=== PATIENT | female | born 1980 | race Caucasian/White ===

== ENCOUNTER → 2017-03-01 | Outpatient (CLI) | payer BC ==
[2015-06-05 02:35] VITALS: BP 135/75
[~2017-03-01] MED LIST: TRAM-48 PO
--- NOTE | 2017-03-01 14:19 | KCIC ---
Examination: CT maxillofacial bones HISTORY: History of chronic sinusitis, pain behind the right eye, drainage continues COMPARISON: None TECHNIQUE: Axial CT images of the maxillofacial bones were performed without contrast. Coronal and sagittal reformats were performed Exposure: One or more of the following individualized dose reduction techniques were utilized for this examination: 1. Automated exposure control 2. Adjustment of the mA and/or kV according to patient size 3. Use of iterative reconstruction technique FINDINGS: The bilateral orbital globes appear intact. Fat is maintained The visualized ethmoid sinuses, sphenoid sinuses, maxillary sinuses demonstrate no evidence of fluid level. The mastoid air cells are clear. The bilateral pterygoid plates appear intact. The bilateral temporomandibular joints grossly appears unremarkable. IMPRESSION: 1. No evidence of sinus disease. Electronically signed by: Bj Conner MD (03/01/2017 2:16 PM)
== END | disposition home or self-care (01) ==
LOC: KCIC CT 12:49
PROVIDERS: ATTEND Otolaryngology
DX: J32.9 Chronic sinusitis, unspecified (principal)
CPT/HCPCS: 70486

== ENCOUNTER 2019-12-03 23:09 | Emergency (ER) | payer BC ==
[~2019-12-03] VITALS: Ht 167.6 cm; Wt 160.0 kg
--- NOTE | 2019-12-03 23:40 | PHYS DOC ---
Past Medical History Past Medical History: Asthma, Hypertension, Other Additional Past Medical Histor: ENDOMETRIOSIS Past Surgical History: Other Additional Past Surgical Histo: LAP BAND, ENDOMETRIOSIS SX. Smoking Status: Current Every Day Smoker Alcohol Use: Occasionally Drug Use: None Adult General Chief Complaint Chief Complaint: NAUSEA/VOMITING/DIARRHA HPI HPI 39-year-old female with history of asthma and hypertension presents to the emergency department with complaints of elevated blood pressure, diarrhea, dizziness, nausea, abdominal pain. She denies any fever cough. The symptoms been ongoing x2 days. Patient states her blood pressure was in the 170s over 100s at home. She does take 3 blood pressure medications including losartan, hydrochlorothiazide, amlodipine. Nothing makes her symptoms worse, nothing makes her symptoms better. Her abdominal pain is primarily generalized and achy. Review of Systems Review of Systems Constitutional: Denies fever or chills [] HENT: Denies nasal congestion or sore throat [] Respiratory: Denies cough or shortness of breath [] Cardiovascular: No additional information not addressed in HPI [] GI: + abdominal pain, nausea, vomiting, diarrhea [] : Denies dysuria or hematuria [] Musculoskeletal: Denies back pain or joint pain [] Neurologic: Denies headache, focal weakness or sensory changes [] All other systems were reviewed and found to be within normal limits, except as documented in this note. Current Medications Current Medications Current Medications Medications (Trade) Dose Ordered Sig/Tiffany Start Time Stop Time Status Last Admin Dose Admin Dicyclomine HCl (Bentyl) 20 mg 1X ONCE 12/04/19 01:00 12/04/19 01:01 Iohexol (Omnipaque 300 Mg/ml) 75 ml 1X ONCE 12/04/19 00:30 12/04/19 00:31 DC 12/04/19 00:24 75 ML Ondansetron HCl (Zofran) 4 mg 1X ONCE 12/04/19 00:00 12/04/19 00:01 DC 12/04/19 00:05 4 MG Sodium Chloride 1,000 ml @ 1,000 mls/hr Q1H 12/04/19 00:00 12/04/19 00:59 12/04/19 00:04 1,000 MLS/HR Allergies Allergies Allergies Coded Allergies Type Severity Reaction Last Updated Verified No Known Drug Allergies 06/05/15 No Physical Exam Physical Exam Constitutional: Well developed, well nourished, no acute distress, non-toxic appearance. [] HENT: Normocephalic, atraumatic, bilateral external ears normal, oropharynx moist, no oral exudates, nose normal. [] Eyes: PERRLA, EOMI, conjunctiva normal, no discharge. [] Cardiovascular:Heart rate regular rhythm, no murmur [] Lungs & Thorax: Bilateral breath sounds clear to auscultation [] Abdomen: Bowel sounds normal, soft, generalized TTP, no masses, no pulsatile masses. [] Skin: Warm, dry, no erythema, no rash. [] Back: No tenderness, no CVA tenderness. [] Extremities: No tenderness, no edema. [] Neurologic: Alert and oriented X 3, no focal deficits noted. [] Psychologic: Affect normal, judgement normal, mood normal. [] Current Patient Data Vital Signs Vital Signs Date Time Temp Pulse Resp B/P (MAP) Pulse Ox O2 Delivery O2 Flow Rate FiO2 12/03/19 23:20 98.0 103 22 176/99 (124) 99 Room Air 98.0 Lab Values Laboratory Tests Test 12/03/19 23:20 12/03/19 23:27 12/03/19 23:29 Urine Collection Type Unknown Urine Color Xi Urine Clarity Clear Urine pH 5.5 (<5.0-8.0) Urine Specific [place] >=1.030 (1.000-1.030) Urine Protein Negative mg/dL (NEG-TRACE) Urine Glucose (UA) Negative mg/dL (NEG) Urine Ketones (Stick) Negative mg/dL (NEG) Urine Blood Negative (NEG) Urine Nitrite Negative (NEG) Urine Bilirubin Small (NEG) Urine Urobilinogen Dipstick 0.2 mg/dL (0.2 mg/dL) Urine Leukocyte Esterase Negative (NEG) Urine RBC 0 /HPF (0-2) Urine WBC 1-4 /HPF (0-4) Urine Squamous Epithelial Cells Mod /LPF Urine Bacteria Few /HPF (0-FEW) Urine Mucus Marked /LPF POC Urine HCG, Qualitative Hcg negative (Negative) White Blood Count 10.7 x10^3/uL (4.0-11.0) Red Blood Count 4.83 x10^6/uL (3.50-5.40) Hemoglobin 14.8 g/dL (12.0-15.5) Hematocrit 43.2 % (36.0-47.0) Mean Corpuscular Volume 89 fL (79-100) Mean Corpuscular Hemoglobin 31 pg (25-35) Mean Corpuscular Hemoglobin Concent 34 g/dL (31-37) Red Cell Distribution Width 13.6 % (11.5-14.5) Platelet Count 232 x10^3/uL (140-400) Neutrophils (%) (Auto) 73 % (31-73) Lymphocytes (%) (Auto) 19 % (24-48) L Monocytes (%) (Auto) 6 % (0-9) Eosinophils (%) (Auto) 2 % (0-3) Basophils (%) (Auto) 1 % (0-3) Neutrophils # (Auto) 7.8 x10^3/uL (1.8-7.7) H Lymphocytes # (Auto) 2.1 x10^3/uL (1.0-4.8) Monocytes # (Auto) 0.6 x10^3/uL (0.0-1.1) Eosinophils # (Auto) 0.2 x10^3/uL (0.0-0.7) Basophils # (Auto) 0.1 x10^3/uL (0.0-0.2) Sodium Level 138 mmol/L (136-145) Potassium Level 3.5 mmol/L (3.5-5.1) Chloride Level 99 mmol/L (98-107) Carbon Dioxide Level 30 mmol/L (21-32) Anion Gap 9 (6-14) Blood Urea Nitrogen 11 mg/dL (7-20) Creatinine 0.9 mg/dL (0.6-1.0) Estimated GFR (Cockcroft-Gault) 69.3 BUN/Creatinine Ratio 12 (6-20) Glucose Level 137 mg/dL (70-99) H Lactic Acid Level 1.9 mmol/L (0.4-2.0) Calcium Level 9.1 mg/dL (8.5-10.1) Total Bilirubin 0.5 mg/dL (0.2-1.0) Aspartate Amino Transferase (AST) 28 U/L (15-37) Alanine Aminotransferase (ALT) 40 U/L (14-59) Alkaline Phosphatase 85 U/L (46-116) Troponin I Quantitative < 0.017 ng/mL (0.000-0.055) Total Protein 7.2 g/dL (6.4-8.2) Albumin 3.9 g/dL (3.4-5.0) Albumin/Globulin Ratio 1.2 (1.0-1.7) Lipase 63 U/L (73-393) L Laboratory Tests 12/03/19 23:29 Laboratory Tests 12/03/19 23:29 EKG EKG [] Radiology/Procedures Radiology/Procedures [facility] [address] [place] [address] IMAGING REPORT Signed PATIENT: FADUMO ARTEAGA ACCOUNT: [id number] : 1980 LOCATION: ER AGE: 39 SEX: F EXAM STATUS: REG ER ORD. PHYSICIAN: BRET ALMEIDA MD REASON: abdominal pain, diarrhea PROCEDURE: CT ABD PELV W/ IV CONTRST ONLY CT ABD PELV W/ IV CONTRST ONLY History: Abdominal pain, diarrhea Comparison: None. Technique: After administration of intravenous contrast, helical CT of the abdomen and pelvis was performed from the lung bases through the ischial tuberosities. Coronal and sagittal reconstructions were obtained. 75 mL of Omnipaque 300 were used. One or more of the following dose reduction techniques were utilized: Automated exposure control (AEC), Adjustment of mA and/or kV according to patient size, Use of iterative reconstruction technique such as ASiR, CT scan done according to ALARA and image gently/image wisely Abdomen Findings: The visualized lung bases are clear. The liver, gallbladder, pancreas, spleen, and bilateral adrenal glands are normal. Symmetric renal enhancement. There is no focal renal mass. There is no hydronephrosis. Gastric lap band in place. The visualized loops of small bowel are normal. The visualized loops of large bowel are normal. There is no evidence of bowel obstruction. Appendix is normal. There is no free fluid. There is no mesenteric or retroperitoneal adenopathy. The abdominal aorta is normal in caliber. Pelvis Findings: Urinary bladder is decompressed. Uterus is present. No pelvic free fluid. There is no pelvic or inguinal adenopathy. Degenerative changes of the spine. IMPRESSION: No acute findings. Electronically signed by: Gonzalo Ulloa MD (12/04/2019 12:34 AM) [id number] DICTATED and SIGNED BY: GONZALO ULLOA MD DATE: 12/04/19 0034 [] Course & Med Decision Making Course & Med Decision Making Pertinent Labs and Imaging studies reviewed. (See chart for details) []39-year-old female with history of asthma and hypertension presents to the emergency department with complaints of elevated blood pressure, diarrhea, dizziness, nausea, abdominal pain. She denies any fever cough. The symptoms been ongoing x2 days. Patient states her blood pressure was in the 170s over 100s at home. She does take 3 blood pressure medications including losartan, hydrochlorothiazide, amlodipine. Nothing makes her symptoms worse, nothing makes her symptoms better. Her abdominal pain is primarily generalized and achy. Discussed laboratory findings with patient at bedside, white blood cell count within normal limits 10.7, platelets 232, CMP reviewed and unremarkable Urinalysis negative for acute infection, lactic acid 1.9 CT reveals no evidence of acute intra-abdominal process. Patient received IV fluids, Zofran, Bentyl, she states she feels better. Dragon Disclaimer Dragon Disclaimer This electronic medical record was generated, in whole or in part, using a voice recognition dictation system. Departure Departure Impression: Primary Impression: Nausea & vomiting Additional Impressions: Abdominal pain HTN (hypertension) Disposition: 01 HOME, SELF-CARE Condition: IMPROVED Referrals: MICHEAL MASON MD (PCP) Patient Instructions: Abdominal Pain (Nonspecific), Nausea and Vomiting, Easy- to-Read Additional Instructions: CT negative for acute findings UA negative for infection Rx provided for zofran and bentyl upon discharge Return to the ER with worsening symptoms, intractable fever, altered mental status Scripts Dicyclomine Hcl (DICYCLOMINE HCL) 10 Mg Capsule 1 CAP PO PRN Q6HRS PRN for PAIN, #20 CAP 0 Refills Prov: BRET ALMEIDA MD 12/04/19 Ondansetron Hcl (ZOFRAN) 4 Mg Tablet 1 TAB PO PRN Q6-8HRS for nausea, #12 TAB Prov: BRET ALMEIDA MD 12/04/19 Problem Qualifiers Primary Impression: Nausea & vomiting Vomiting type: unspecified Vomiting Intractability: unspecified Qualified Codes: R11.2 - Nausea with vomiting, unspecified Additional Impressions: Abdominal pain Abdominal location: generalized Qualified Codes: R10.84 - Generalized abdominal pain HTN (hypertension) Hypertension type: essential hypertension Qualified Codes: I10 - Essential (primary) hypertension BRET ALMEIDA MD Dec 03, 2019 23:40
[2019-12-03 23:48] LABS: BASO # 0.1 x10^3/uL (0.0-0.2); BASO % 1 % (0-3); EOS # 0.2 x10^3/uL (0.0-0.7); EOS % 2 % (0-3); HEMATOCRIT 43.2 % (36.0-47.0); HEMOGLOBIN 14.8 g/dL (12.0-15.5); LYMPH # 2.1 x10^3/uL (1.0-4.8); LYMPH % 19 % (24-48); MEAN CORPUSCULAR HEMOGLOBIN 31 pg (25-35); MEAN CORPUSCULAR HGB CONC 34 g/dL (31-37); MEAN CORPUSCULAR VOLUME 89 fL (79-100); MONO # 0.6 x10^3/uL (0.0-1.1); MONO % 6 % (0-9); NEUT # 7.8 x10^3/uL (1.8-7.7); NEUT % 73 % (31-73); PLATELET COUNT 232 x10^3/uL (140-400); RED BLOOD COUNT 4.83 x10^6/uL (3.50-5.40); RED CELL DISTRIBUTION WIDTH 13.6 % (11.5-14.5); WHITE BLOOD COUNT 10.7 x10^3/uL (4.0-11.0)
[2019-12-03 23:49] LABS: BILIRUBIN,URINE SMALL (NEG); CLARITY,URINE CLEAR; COLOR,URINE AMBER; NITRITE,URINE NEGATIVE (NEG); PH,URINE 5.5 (<5.0-8.0); PROTEIN,URINE NEGATIVE (NEG-TRACE); UROBILINOGEN,URINE 0.2 mg/dL (0.2 mg/dL)
[2019-12-03 23:53] LABS: BACTERIA,URINE FEW /HPF (0-FEW); RBC,URINE 0 /HPF (0-2); SQUAMOUS EPITHELIAL CELL,UR MOD /LPF
[2019-12-03 23:56] LABS: CALCIUM 9.1 mg/dL (8.5-10.1); CREATININE 0.9 mg/dL (0.6-1.0); GFR 69.3; POTASSIUM 3.5 mmol/L (3.5-5.1)
[2019-12-04] MEDS ORDERED: IV NORMAL SALINE 1000ML BAG 1,000 ML IV SCH
[2019-12-04] MEDS ORDERED: ONDANSETRON PF 4 MG/2 ML VIAL. IVP ONE
[2019-12-04 00:02] LABS: ALBUMIN 3.9 g/dL (3.4-5.0); ALBUMIN/GLOBULIN RATIO 1.2 (1.0-1.7); TOTAL BILIRUBIN 0.5 mg/dL (0.2-1.0); TOTAL PROTEIN 7.2 g/dL (6.4-8.2)
[2019-12-04] MEDS ORDERED: IOHEXOL 300 MG/ML 100ML VIAL. IV ONE (00:30)
--- NOTE | 2019-12-04 00:37 | RAD ---
CT ABD PELV W/ IV CONTRST ONLY History: Abdominal pain, diarrhea Comparison: None. Technique: After administration of intravenous contrast, helical CT of the abdomen and pelvis was performed from the lung bases through the ischial tuberosities. Coronal and sagittal reconstructions were obtained. 75 mL of Omnipaque 300 were used. One or more of the following dose reduction techniques were utilized: Automated exposure control (AEC), Adjustment of mA and/or kV according to patient size, Use of iterative reconstruction technique such as ASiR, CT scan done according to ALARA and image gently/image wisely Abdomen Findings: The visualized lung bases are clear. The liver, gallbladder, pancreas, spleen, and bilateral adrenal glands are normal. Symmetric renal enhancement. There is no focal renal mass. There is no hydronephrosis. Gastric lap band in place. The visualized loops of small bowel are normal. The visualized loops of large bowel are normal. There is no evidence of bowel obstruction. Appendix is normal. There is no free fluid. There is no mesenteric or retroperitoneal adenopathy. The abdominal aorta is normal in caliber. Pelvis Findings: Urinary bladder is decompressed. Uterus is present. No pelvic free fluid. There is no pelvic or inguinal adenopathy. Degenerative changes of the spine. IMPRESSION: No acute findings. Electronically signed by: John Ulloa MD (12/04/2019 12:34 AM) [id number]
[2019-12-04 00:52] VITALS: BP 125/71
[2019-12-04] MEDS ORDERED: DICY10CA3 PO (00:54)
[2019-12-04] MEDS ORDERED: ONDA4TAB7 PO (00:54)
[2019-12-04] MEDS ORDERED: DICYCLOMINE 20 MG/2 ML VIAL. IM ONE (01:00)
--- NOTE | 2019-12-04 05:48 | EKG ---
[facility] [address] [place] [address] Test Date: 2019-12-04 Test Time: 00:02:30 Pat Name: FADUMO ARTEAGA Department: Room: Gender: F Drawing In Hand: : 1980 Requested By: BRET ALMEIDA Order Number: [id number] Reading MD: Measurements Intervals [place] Rate: 91 P: 31 AK: 152 QRS: 31 QRSD: 86 T: 33 QT: 372 QTc: 465 Interpretive Statements SINUS RHYTHM NON SPECIFIC ST-T ABNORMALITY (ELEVATION) OTHERWISE NORMAL ECG No previous ECG available for comparison
== END 2019-12-04 01:07 | disposition home or self-care (01) ==
LOC: ER 23:09
DX: R11.2 Nausea with vomiting, unspecified (principal); R19.7 Diarrhea, unspecified; R42 Dizziness and giddiness; J45.909 Unspecified asthma, uncomplicated; I10 Essential (primary) hypertension; F17.200 Nicotine dependence, unspecified, uncomplicated; Z98.890 Other specified postprocedural states
CPT/HCPCS: 36415; 74177; 80053; 81001; 81025; 83605; 83690; 84484; 85025; 93005; 96361; 96372; 96374; 99285; J0500; J2405; J7030; Q9967

== ENCOUNTER → 2021-03-04 | Outpatient (CLI) | payer BC ==
[~2021-03-04] MED LIST changes: +DICY10CA3 PO; +ONDA4TAB7 PO
--- NOTE | 2021-03-04 16:47 | KCIC ---
EXAM: XR LUMBAR SPINE 4+V, XR BILATERAL HIP (WITH OR WITHOUT PELVIS) 2 VIEWS_RIGHT 03/04/2021 3:58 PM CLINICAL INDICATION: Right lumbar pain, right hip and groin pain COMPARISON: CT abdomen pelvis 12/04/2019 TECHNIQUE: AP view the pelvis and AP and frog-leg lateral view of the right hip. AP, lateral, coned- down lateral, and right left oblique views of the lumbar spine FINDINGS: Right hip: No acute fracture. Alignment is normal. The hips, pubic symphysis, and sacroiliac joints a re normal. Lumbar spine: There are 5 nonrib-bearing lumbar vertebral bodies. No acute fracture. Alignment is nor mal. There is suspected osseous bridging anteriorly at T12-L1. Mild disc space narrowing at L1-L2 and L2-L3 with small anterior osteophytes. Mild disc space narrowing at L5-S1. No significant facet arth rosis. A gastric lap band is noted. IMPRESSION: 1. Normal radiograph of right hip. 2. Mild lumbar degenerative disc disease, greatest in the upper lumbar spine. Electronically signed by: Pily Vidal MD (03/04/2021 4:44 PM) [id number]
== END ==
LOC: KCIC 15:39
PROVIDERS: ATTEND Family Medicine
DX: M51.36 Other intervertebral disc degeneration, lumbar region (principal); M48.07 Spinal stenosis, lumbosacral region; M25.78 Osteophyte, vertebrae; M54.5 Low back pain; R10.31 Right lower quadrant pain
CPT/HCPCS: 72110; 73502

== ENCOUNTER → 2021-03-29 | Outpatient (CLI) | payer BC ==
--- NOTE | 2021-03-29 16:49 | KCIC ---
Examination: MRI lumbar spine without IV contrast. History: LUMBAR BACK PAIN radiating to right hip and down leg. Technique: Multiplanar, multi sequential MR imaging was performed of the lumbar spine. Comparison: None Findings: Normal vertebral body height and alignment. No fracture. Conus terminates at the normal location. No evidence of nerve root clumping. Multilevel degenerative changes with disc desiccation and disc space narrowing, specific level as follow. L1-L2: No canal or neuroforaminal narrowing. L2-L3: Mild diffuse disc bulge. No canal stenosis or neuroforaminal narrowing. L3-L4: No canal or neuroforaminal narrowing. L4-L5: Mild diffuse disc bulge. No canal or neuroforaminal narrowing. L5-S1: No canal or neuroforaminal narrowing. Impression: Mild degenerative changes in the lumbar spine without significant canal stenosis or neuroforaminal na rrowing. Electronically signed by: Sabrina Vega MD (03/29/2021 4:47 PM) [id number]
== END ==
LOC: KCIC MRI 14:41
PROVIDERS: ATTEND Family Medicine
DX: M47.26 Other spondylosis with radiculopathy, lumbar region (principal); M51.16 Intervertebral disc disorders with radiculopathy, lumbar region; M48.061 Spinal stenosis, lumbar region without neurogenic claudication
CPT/HCPCS: 72148